=== PATIENT | male | born 1970 | race Asian ===

== ENCOUNTER → 2023-09-10 | Emergency (ER) | payer SELFPAY ==
[~2023-09-10] VITALS: Ht 170.2 cm; Wt 67.1 kg
[~2023-09-10] MED LIST: PANT40TA49 PO
[2023-09-10 09:41] VITALS: BP 129/61; TEMP 98.4; O2SAT 100
== END | disposition home or self-care (01) ==
LOC: ER 10:49
DX: R10.84 Generalized abdominal pain (principal); Z60.2 Problems related to living alone

== ENCOUNTER 2023-10-27 20:31 | Emergency (ER) | payer MEDICAID ==
[~2023-10-27] VITALS: Ht 170.2 cm; Wt 72.6 kg
[2023-10-27 22:39] LABS: BASOPHILS % (AUTO) 0.3 % (0.0-2.0); EOSINOPHILS # (AUTO) 0.4 K/uL (0.0-0.7); EOSINOPHILS % (AUTO) 4.1 % (0.0-6.0); HEMATOCRIT 44 % (39-51); HEMOGLOBIN 15.2 g/dL (13.5-17.5); LYMPHOCYTES # (AUTO) 3.4 K/uL (0.8-4.8); MEAN CORPUSCULAR HEMOGLOBIN 30 PG (26.0-33.0); MEAN CORPUSCULAR HGB CONC 34 g/dl (31.0-36.0); MEAN CORPUSCULAR VOLUME 87 fL (80-96); MONOCYTES # (AUTO) 0.6 K/uL (0.1-1.30); MONOCYTES % (AUTO) 6.2 % (2.0-12.0); NEUTROPHILS # (AUTO) 5.5 K/uL (1.8-8.9); NEUTROPHILS % (AUTO) 55.4 % (43.0-81.0); PLATELET COUNT (AUTO) 169 K/uL (150-450); RED BLOOD CELL COUNT(AUTO) 5.06 MIL/uL (4.5-6.0); RED CELL DISTRIBUTION WIDTH 13.4 % (11.5-15.0)
[2023-10-27] MEDS ORDERED: MORPHINE SULFATE INJ 2 MG/ML DISP.SYRIN ONE (22:54)
[2023-10-27 22:55] LABS: ALBUMIN 4.3 g/dL (3.4-5.0); BILIRUBIN,DIRECT 0.2 mg/dL (0.0-0.2); BILIRUBIN,TOTAL 0.9 mg/dL (0.2-1.0); CALCIUM, SERUM 9.6 mg/dL (8.5-10.1); CREATININE 1.1 mg/dL (0.6-1.3); POTASSIUM 3.7 mmol/L (3.5-5.1)
[2023-10-27] MEDS: MORPHINE SULFATE INJ 2 MG/ML DISP.SYRIN IV ONE (22:56)
[2023-10-27] MEDS ORDERED: METR500T PO (23:48)
[2023-10-27] MEDS ORDERED: MORP15TA PO (23:48)
[2023-10-27] MEDS ORDERED: CIPR500T5 PO (23:48)
[2023-10-27 23:59] VITALS: BP 122/82; TEMP 98; O2SAT 99
[2023-10-28] MEDS ORDERED: METRONIDAZOLE 500 MG TABLET PO ONE
[2023-10-28] MEDS ORDERED: CIPROFLOXACIN HCL 250 MG TABLET PO ONE
[2023-10-28] MEDS ORDERED: HYDR-3972 PO (15:51)
== END 2023-10-28 | disposition home or self-care (01) ==
LOC: ER 20:35
DX: K57.32 Diverticulitis of large intestine without perforation or abscess without bleeding (principal); R19.7 Diarrhea, unspecified; R10.9 Unspecified abdominal pain; I50.9 Heart failure, unspecified; Z60.2 Problems related to living alone
CPT/HCPCS: 99285; 74176; 96374; 85025; 80048; 83690; 80076; 36415; J2270

== ENCOUNTER 2023-10-28 02:26 | Emergency (ER) | payer MEDICAID ==
[~2023-10-28] VITALS: Ht 167.6 cm; Wt 72.6 kg
[~2023-10-28 02:26] MED LIST changes: +CIPR500T5 PO; +METR500T PO; +MORP15TA PO
[2023-10-28 03:30] VITALS: BP 128/84; TEMP 97.9; O2SAT 99
[2023-10-28 04:12] LABS: AMPHETAMINE, URINE NEGATIVE (NEGATIVE); BARBITURATE, URINE NEGATIVE (NEGATIVE); BENZODIAZEPINE, URINE NEGATIVE (NEGATIVE); CANNABINOID, URINE NEGATIVE (NEGATIVE); COCCAINE, URINE NEGATIVE (NEGATIVE); PHENCYCLIDINE SCREEN,URINE NEGATIVE (NEGATIVE)
[2023-10-28 04:15] LABS: OPIATE, URINE POSITIVE (NEGATIVE)
[2023-10-28 04:16] LABS: ACETAMINOPHEN <10 ug/ml (10-30); ALCOHOL, BLOOD < 3 mg/dL (0-10); SALICYLATE < 2.3 mg/dL (2.8-20.0)
[2023-10-28 04:23] LABS: APPEARANCE,URINE CLEAR (CLEAR); BILIRUBIN,URINE 2+ (NEGATIVE); BLOOD, URINE NEGATIVE Ery/uL (NEGATIVE); COLOR,URINE DARK YELLOW (YELLOW); KETONES,URINE 3+ mg/dL (NEGATIVE); LEUKOCYTE ESTERASE ,URINE NEGATIVE (NEGATIVE); NITRITE, URINE NEGATIVE (NEGATIVE); PH,URINE 5.5 (5.0-8.0); PROTEIN,URINE TRACE mg/dl (NEGATIVE); UGLUCOSE NEGATIVE (NEGATIVE); UROBILINOGEN,URINE 0.2 EU/dL (0.2)
[2023-10-28 04:49] LABS: ADD URINE CULTURE NO; BACTERIA,URINE Rare /HPF (None Seen); RBC,URINE 0-2 /HPF (0-2); SQUAMOUS EPITHELIAL CELL,UR Few /HPF (None Seen); WBC,URINE 0-2 /HPF (0-3)
[2023-10-28] MEDS ORDERED: HYDR-3972 PO (15:51)
== END 2023-10-28 14:30 ==
LOC: ER 02:28
DX: R45.851 Suicidal ideations (principal); K57.32 Diverticulitis of large intestine without perforation or abscess without bleeding; I50.9 Heart failure, unspecified; Z60.2 Problems related to living alone; Z20.822 Contact with and (suspected) exposure to COVID-19
CPT/HCPCS: 99285; 81001; 36415; 87426; 80143; 80320; 80307; C9803; G0480